=== PATIENT | male | born 1950 | race Caucasian/White ===

== ENCOUNTER 2024-01-07 14:39 | Outpatient (AMB) | payer MEDICARE, SELFPAY ==
--- NOTE | 2024-01-07 14:52 | MHC.PC.OV ---
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 Intake Note: establish care Allergies No Known Allergies Allergy (Verified 01/07/24 14:52) Tobacco use date assessed: 01/07/24 Fall risk assessment: 1 Fall in past year Last assessed Fall Risk: 01/07/24 Dental Screening Dental Screen Date: 01/07/24 Did you have a dental visit in the last 12 months?: Yes Did you have a dental problem in the last 6 months where you did not have access to dental care?: No Was dental information given to patient?: Patient has dentist 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 HLD, Prostate CA - Urology Dr Sloan, ED SurgHx: Prostatectomy about 9 yrs ago, B/L Knee replacements SocHx: Quit cigs 24 yrs ago, EtOH 2 dr a month. [facility] Surgical History (Updated 01/07/24 @ 15:24 by Arie Mensah) History of bilateral knee replacement Social History (Updated 01/07/24 @ 14:59 by Asmita Barreto [facility]) Housing: Apartment Patient Tobacco Use Status: Never used Tobacco e-Cigarette/Vaping Use: Never Used Second Hand Smoke Exposure: No Use of substances other than those prescribed or required for medical reasons: No service: Yes ([employer]) Current occupational status: retired Current occupational exposures/hazards: No Cognitive needs: No Hearing needs: Yes Vision needs: Yes Questionnaire PHQ-9 Over the last 2 weeks, how often have you been bothered by any of the following problems? 1. Little interest or pleasure in doing things: not at all 2. Feeling down, depressed, or hopeless: not at all 3. Trouble falling or staying asleep, or sleeping too much: not at all 4. Feeling tired or having little energy: not at all 5. Poor appetite or overeating: not at all 6. Feeling bad about yourself - or that you are a failure or have let yourself or your family down: not at all 7. Trouble concentrating on things, such as reading the newspaper or watching television: not at all 8. Moving or speaking so slowly that other people could have noticed. Or the opposite - being so fidgety or restless that you have been moving around a lot more than usual: not at all 9. Thoughts that you would be better off or of hurting yourself in some way: not at all Total score: 0 Depression Screening Interpretation: Negative Depression Screening Done: Yes 09152 - PHQ-9 Billing: Yes Source: Developed by Drs. Teodoro Howard, Obdulia Muniz, Navi Todd and colleagues, with an educational omi from [employer]. Thrive Questionnaire Date Thrive assessed: 01/07/24 I am a: Patient What is your living situation today?: I have a steady place to live Within the past 12 months, did the food you bought not last and you didn't have the money to get more?: Never true Within the past 12 months, did you worry whether your food would run out before you got money to buy more?: Never true Do you have trouble paying for medicines?: No Do you have trouble getting transportation to medical appointments?: No Do you have trouble paying your heating and electricity bill?: No Do you have trouble taking care of your child, family member or friend?: No Do you have trouble with day-to-day activities such as bathing, preparing meals, shopping, managing finances, etc.?: No Are you currently unemployed and looking for a job?: No Are you interested in more education?: No Please select the resources that you would like help with: None Currently or been in a relationship where the following occur: No concerns reported THRIVE Score: 0 AUDIT C Alcohol Use Questionnaire (AUDIT-C) 1. How often do you have a drink containing alcohol?: 2-4 times a month 2. How many drinks containing alcohol do you have on a typical day when you are drinking?: 1 or 2 3. How often do you have six or more drinks on one occasion?: Never Total Score: 2 Score Reviewed/Action Taken: No JUAN JOSE-7 AMB Questionnaire JUAN JOSE-7 Date JUAN JOSE - 7 assessed: 01/07/24 Feeling nervous, anxious, or on edge: 0 = Not at all Not being able to stop or control worryin = Not at all Worrying too much about different things: 0 = Not at all Trouble relaxin = Not at all Being so restless that it is hard to sit still: 0 = Not at all Becoming easily annoyed or irritable: 0 = Not at all Feeling afraid as if something awful might happen: 0 = Not at all Total JUAN JOSE-7 score (0-4 normal; 5-9 mild; 10-14 moderate; 15-21 severe): 0 Source: Developed by Drs. Teodoro Howard, Obdulia Muniz, Navi Todd and colleagues, with an educational omi from [employer]. JUAN JOSE-7 Assessment Billing JUAN JOSE-7 Assessment Tool: JUAN JOSE-7 Assessment 20857 Review of Systems Const Denies chills, Denies fatigue, Denies fever(s), Denies headache(s) and Denies weakness ENT Denies dizziness and Denies headache(s) Card Denies chest pain, Denies lightheadedness, Denies dyspnea and Denies other (Palpitations) Resp Denies cough, Denies dyspnea, Denies wheezing and Denies other ( shortness of breath) Musc Denies numbness and Denies tingling Neuro Denies dizziness, Denies headache(s), Denies numbness, Denies tingling, Denies paresthesias and Denies weakness Psych Denies anxiety and Denies depression Endo Denies fatigue Aller/Immun Denies wheezing Physical exam (Primary Care) Vital Signs: Last Vital Signs Temp 98.1 F 01/07/24 15:02 Pulse 61 01/07/24 15:02 Resp 16 01/07/24 15:02 BP 117/71 01/07/24 15:02 Pulse Ox 60 L 01/07/24 15:02 Oxygen Delivery Method Room Air 01/07/24 15:02 BMI result Body Mass Index 28.3 Tobacco/Smoking Status: Tobacco use Status Tobacco use date assessed 01/07/24 01/07/24 15:05 Patient Tobacco Use Status Never used Tobacco 01/07/24 15:05 e-Cigarette/Vaping Use Never Used 01/07/24 15:05 PHQ-9: PHQ-9 Score PHQ-9: Total score 0 01/07/24 15:28 Depression Screening Interpretation: Negative Thrive Assessment: Date of Thrive Assessment Date Thrive assessed 01/07/24 01/07/24 15:05 Currently or been in a relationship where the following occur: No concerns reported Const General: no acute distress and well developed Nutritional Appearance: well nourished Orientation/consciousness: patient oriented x3 HENMT Head: Yes normocephalic and Yes atraumatic Eyes General: appearance normal, both eyes and all related structures Pupils: Equal, round and reactive pupils present EOM: EOMs intact bilaterally Resp Effort & Inspection: normal respiratory effort Auscultation: clear to auscultation bilaterally Cardio Rate: regular rate Rhythm: regular rhythm Heart sounds: S1 normal heart sound present, S2 normal heart sound present, no gallops, no murmurs and no rubs Neuro General: patient oriented x3 and gait normal Cranial nerves: Yes Equal, round and reactive pupils present Psych Affect: normal affect Coding Level of Care Code New Pt Level 3 (90825) Diagnoses History of prostate cancer Z85.46 Coronary artery disease I25.10 Hypertension I10 Hyperlipidemia E78.5 Erectile dysfunction N52.9 Laboratory exam ordered as part of routine general medical examination Z00.00 Additional Codes JUAN JOSE-7 Assessment Billing - JUAN JOSE-7 Assessment Tool: JUAN JOSE-7 Assessment 67278 ([id number]) Assessment & Plan Assessment & Plan (1) History of prostate cancer: Code(s): Z85.46 - Personal history of malignant neoplasm of prostate Category: Medical Plan: S/p?prostatectomy?Followed?by urology (2) Coronary artery disease: Code(s): I25.10 - Atherosclerotic heart disease of [place] coronary artery without angina pectoris Category: Medical Plan: Followed?by?,?cardiology Stable Continue?aspirin,?metoprolol,?nitroglycerin?as?needed?and?rosuvastatin (3) Hypertension: Code(s): I10 - Essential (primary) hypertension Category: Medical Plan: Blood?pressure?is?controlled.??Goal?is?less?than?130/80 Continue?metoprolol (4) Hyperlipidemia: Code(s): E78.5 - Hyperlipidemia, unspecified Category: Medical Plan: Check?lipids Continue?rosuvastatin (5) Erectile dysfunction: Code(s): N52.9 - Male erectile dysfunction, unspecified Category: Medical Plan: Followed?by?urology Patient?uses?injectables?and?caused?an?injury?with?infection.??Currently?followed?by?urology?for?this?and?is?taking?doxycycline.??He?can?call?me?or?his?urologist?if?not?improving?or?worsens (6) Laboratory exam ordered as part of routine general medical examination: Code(s): Z00.00 - Encounter for general adult medical examination without abnormal findings Category: Medical Plan: Check?labs Orders: Orders Microalbumin, Random (w Creat) Today I10 - Essential (primary) hypertension Prostate Specific Antigen Scr Today Z12.5 - Encounter for screening for malignant neoplasm of prostate Comprehensive [place]. Panel Fast Today Z00.00 - Encounter for general adult medical examination without abnormal findings Complete Blood Count Auto Diff Today Z00.00 - Encounter for general adult medical examination without abnormal findings Lipid Panel Today Z00.00 - Encounter for general adult medical examination without abnormal findings TSH reflex Free T4 Today Z00.00 - Encounter for general adult medical examination without abnormal findings UA and rflx microscopic Today Z00.00 - Encounter for general adult medical examination without abnormal findings
[2024-01-07 15:02] VITALS: BP 117/71; PULSE 97; RESP 16; TEMP 36.7; O2SAT 60; BMI 28.3
== END 2024-01-07 15:38 | disposition home or self-care (01) ==
LOC: HO.HMCFM 14:39
PROVIDERS: PCP Family Medicine; Visit Provider Family Medicine
DX: Z85.46 Personal history of malignant neoplasm of prostate (principal); I25.10 Atherosclerotic heart disease of native coronary artery without angina pectoris; I10 Essential (primary) hypertension; E78.5 Hyperlipidemia, unspecified; N52.9 Male erectile dysfunction, unspecified; Z00.00 Encounter for general adult medical examination without abnormal findings

== ENCOUNTER → 2024-01-07 14:39 | Outpatient (BNVA) | payer MEDICARE, SELFPAY | PROVIDERS: PCP Internal Medicine; Visit Provider Family Medicine | DX: Z00.00 Encounter for general adult medical examination without abnormal findings (principal); N52.9 Male erectile dysfunction, unspecified; I25.10 Atherosclerotic heart disease of native coronary artery without angina pectoris; I10 Essential (primary) hypertension; E78.5 Hyperlipidemia, unspecified; Z85.46 Personal history of malignant neoplasm of prostate | CPT/HCPCS: 96127; 99202 ==

== ENCOUNTER 2024-01-08 10:44 | Outpatient (REF) | payer MEDICARE, SELFPAY ==
[2024-01-08 14:22] LABS: Appearance Urine Clear; Color Urine Yellow; Glucose Urine UA Negative (Negative); Leukocyte Esterase Urine Negative (Negative); Nitrite Urine Negative (Negative); Specific Gravity - Urine <= 1.005 (1.005-1.025); Urine Blood Negative (Negative); Urine Ketones Negative (Negative); Urine Protein Negative (Neg-Trace)
[2024-01-08 14:25] LABS: MANUAL DIFF FLAG NO
[2024-01-08 14:29] LABS: Basophils Absolute Auto 0.1 X10*3/uL (0.0-0.2); Basophils Percent Auto 0.9 % (0-2); Eosinophils Absolute Auto 0.6 X10*3/uL (0.0-0.4); Eosinophils Percent Auto 8.8 % (0-4); Imm Gran Abs Auto 0.01 X10*3/uL (0.00-0.03); Imm Gran Pct Auto 0.1 % (0.0-0.4); Lymphocytes Absolute Auto 1.9 X10*3/uL (1.2-4.9); Lymphocytes Percent Auto 27.5 % (20-40); Mean Corpuscular HGB Conc 33.3 g/dl (31.0-36.0); Mean Corpuscular Hemoglobin 31.6 pg (27.0-33.0); Mean Corpuscular Volume 94.7 fL (80.0-98.0); Mean Platelet Volume 11.7 fL (9.4-12.4); Monocytes Absolute Auto 0.9 X10*3/uL (0.1-1.2); Neutrophils Absolute Auto 3.5 x10*3/uL (2.0-8.3); Neutrophils Percent Auto 49.7 % (45-73); Platelet Count 232 X10*3/uL (160-400); Red Blood Count 4.75 X10*6/uL (4.60-5.80); Red Cell Distribution Width 13.8 % (11.0-16.0); White Blood Count 6.9 X10*3/uL (4.8-10.8)
[2024-01-08 15:10] LABS: Creatinine Urine 32.17 mg/dL; Microalbumin Urine < 5.0 mg/L
[2024-01-08 16:08] LABS: Alanine Aminotransferase 43 U/L (0-40); Albumin Level 4.4 g/dL (3.5-5.0); Alkaline Phosphatase 54 U/L (39-117); Anion Gap 15 (12-20); Aspartate Amino Transferase 46 U/L (5-37); Bilirubin Total 0.7 mg/dL (0.0-1.0); Blood Urea Nitrogen 19 mg/dL (9-16); Calcium 9.5 mg/dL (8.4-10.2); Carbon Dioxide 26 mmol/L (22-29); Chloride 104 mmol/L (96-108); Cholesterol 166 mg/dL (<200); Estimated Glomerular Filt Rate > 60; Glucose Fasting 95 mg/dL (60-99); HDL Cholesterol 68 mg/dL (>40); LDL Cholesterol Calculated 86 mg/dL (<100); Potassium 4.5 mmol/L (3.3-5.1); Sodium 140 mmol/L (135-145); Total Protein 7.2 g/dL (6.5-8.0); Triglycerides 64 mg/dL (<150)
[2024-01-08 16:20] LABS: Prostate Specific Antigen Scr < 0.10 ng/mL (<0.05-4.0)
== END 2024-01-08 10:45 | disposition home or self-care (01) ==
LOC: HO.WFDLDS 10:44
PROVIDERS: Visit Provider Family Medicine
DX: Z00.00 Encounter for general adult medical examination without abnormal findings (principal); I10 Essential (primary) hypertension; Z12.5 Encounter for screening for malignant neoplasm of prostate
CPT/HCPCS: 36415; 80053; 80061; 81003; 82043; 82570; 84153; 84443; 85025

== ENCOUNTER → 2024-01-26 07:49 | Outpatient (BNVA) | payer MEDICARE, SELFPAY | PROVIDERS: PCP Family Medicine; Visit Provider Physician Assistant Medical | DX: Z00.00 Encounter for general adult medical examination without abnormal findings (principal); R74.8 Abnormal levels of other serum enzymes; I10 Essential (primary) hypertension; I25.10 Atherosclerotic heart disease of native coronary artery without angina pectoris; E78.5 Hyperlipidemia, unspecified; Z85.46 Personal history of malignant neoplasm of prostate; Z79.82 Long term (current) use of aspirin; Z79.899 Other long term (current) drug therapy | CPT/HCPCS: 99397 ==

== ENCOUNTER 2024-01-26 08:14 | Outpatient (AMB) | payer MEDICARE, SELFPAY ==
--- NOTE | 2024-01-26 08:36 | A.OFFPC_ITS ---
Intake Visit Reasons: Extended Exam Intake Note: Annual exam Allergies adhesive tape Allergy (Intermediate, Verified 01/26/24 08:18) Rash Medication List - Last Reconciled 01/26/24 by Tho Cha MD amoxicillin 1,000 mg PO BID aspirin (Adult Low Dose Aspirin) 81 mg PO DAILY clobetasol 0.05% topical metoprolol succinate ER 25 mg PO DAILY nitroglycerin 0.4 mg sublingual Q5M PRN rosuvastatin 40 mg PO DAILY Tobacco use date assessed: 01/07/24 Fall risk assessment: No Falls in past year Last assessed Fall Risk: 01/26/24 Dental Screening Dental Screen Date: 01/07/24 HPI Extended Exam HPI Details Patient?presents?for CPE?with?follow-up?labs?and?health?maintenance Reviewed?labs?with?patient: Elevated?LDL?cholesterol?above?goal?of?less?than?70?for?patient?with?coronary?ar ciaran?disease.??He?is?on?rosuvastatin?40?mg?daily Mildly?elevated?AST?and?ALT?liver?enzymes.??Patient?notes?that?he?has?had?some?w eight?gain?lately PSA?less?than?0.10?as?he?has?had?a?prostatectomy?and?is?followed?by?Urology. Patient?notes?some?coughing?after?eating?and?gets?some?heartburn?as?well. No?chest?pain?with?this.??Not?associated?with?exertion [facility] Surgical History (Updated 01/07/24 @ 15:24 by Arie Mensah) History of bilateral knee replacement Social History (Updated 01/26/24 @ 08:21 by Lety Payne CMA) Housing: Apartment Alcohol intake: current Patient Tobacco Use Status: Never used Tobacco e-Cigarette/Vaping Use: Never Used Second Hand Smoke Exposure: No service: Yes ([employer]) Current occupational status: retired Current occupational exposures/hazards: No Cognitive needs: No Hearing needs: Yes Vision needs: Yes Questionnaire Thrive Questionnaire Date Thrive assessed: 01/07/24 JUAN JOSE-7 AMB Questionnaire JUAN JOSE-7 Date JUAN JOSE - 7 assessed: 01/07/24 Source: Developed by Drs. Teodoro Howard, Obdulia Muniz, Navi Todd and colleagues, with an educational omi from [employer]. Review of Systems Const Denies chills, Denies fatigue, Denies fever(s), Denies headache(s) and Denies weakness Eyes Denies change in vision ENT Denies dizziness, Denies headache(s), Denies hearing loss, Denies nasal congestion, Denies sinus pain, Denies sinus pressure and Denies sore throat Card Denies chest pain, Denies lightheadedness, Denies dyspnea and Denies other (palpitations) Resp Denies cough, Denies dyspnea and Denies wheezing GI Denies abdominal pain, Denies melena, Denies hematochezia, Denies change in bowel habits, Denies dyspepsia and Denies nausea Denies hematuria and Denies dysuria Musc Denies abnormal gait, Denies myalgias, Denies arthralgias, Denies numbness and Denies tingling Skin/Breast Denies rash, Denies unusual bruising and Denies wounds Neuro Denies abnormal gait, Denies dizziness, Denies headache(s), Denies memory loss, Denies numbness, Denies Sensory deficit (Neuro), Denies tingling and Denies weakness Psych Denies anxiety, Denies depression and Denies memory loss Endo Denies cold intolerance, Denies fatigue, Denies heat intolerance, Denies polydipsia and Denies polyuria Jose/Lymph Denies easy bleeding and Denies easy bruising Aller/Immun Denies wheezing Physical exam (Primary Care) Tobacco/Smoking Status: Tobacco use Status Tobacco use date assessed 01/07/24 01/26/24 08:37 Patient Tobacco Use Status Never used Tobacco 01/26/24 08:37 e-Cigarette/Vaping Use Never Used 01/26/24 08:37 Thrive Assessment: Date of Thrive Assessment Date Thrive assessed 01/07/24 01/26/24 08:37 Const General: no acute distress, well developed, alert and awake Nutritional Appearance: well nourished Orientation/consciousness: patient oriented x3 HENMT Head: Yes normocephalic and Yes atraumatic Ears: hearing grossly normal bilaterally and TM's normal bilaterally General nose exam: Normal external nose present and Normal nares present Mouth: Normal oral and palatal mucosa present and moist mucous membranes Teeth and gingiva: dentition normal Throat: Yes posterior oropharynx normal Eyes Pupils: Equal, round and reactive pupils present and Pupil accommodation reflex normal EOM: EOMs intact bilaterally Neck Neck: Yes normal visual inspection, Yes no lymphadenopathy and Yes trachea midline Thyroid: Thyroid normal Carotids: no bruits Lymphatic: no lymphadenopathy noted Chest Chest palpation & inspection: normal inspection of the chest Resp Effort & Inspection: normal respiratory effort Auscultation: clear to auscultation bilaterally Cardio Rate: regular rate Rhythm: regular rhythm Heart sounds: S1 normal heart sound present, S2 normal heart sound present, no gallops, no murmurs and no rubs Bruits: no abdominal aortic bruits and no carotid bruits GI Palpation (GI): No Abdominal aortic bruit present, Soft to palpation, nontender, No hepatosplenomegaly present and No Rebound tenderness present Auscultation: normal bowel sounds General: Yes no CVA tenderness Back/Spine/Pelvis Back: no CVA tenderness Cervical Spine: cervical ROM normal and No Cervical spine tenderness Thoracic/Lumbar Spine: thoraco-lumbar ROM normal, No pain with thoraco-lumbar ROM, No thoracic spinal tenderness and No lumbar spinal tenderness Skin Lesions: no lesions Rashes: no rashes Trauma: no lacerations or abrasions Wounds: no wounds Nails: normal Neuro General: patient oriented x3, gait normal and CN's II-XI intact bilaterally Cranial nerves: Yes Equal, round and reactive pupils present Cognition (Neuro): normal cognition Gait exam (Neuro): Normal gait present Motor exam (neuro): 5/5 motor strength present throughout Sensory Exam: No Sensory deficit (Neuro) Deep tendon reflexes (DTR's): Right patellar reflex intensity grade: 2+ and Left patellar reflex intensity grade: 2+ Extrem General: Yes normal to inspection and No edema Psych Appearance: grossly normal Affect: normal affect Attitude: cooperative Thought process: Normal thought process present Coding Level of Care Code Est Pt Prev Care >65y(16947) Diagnoses Adult general medical exam Z00.00 Elevated liver enzymes R74.8 Hypertension I10 Coronary artery disease I25.10 Hyperlipidemia E78.5 History of prostate cancer Z85.46 Screening for colon cancer Z12.11 Assessment & Plan Assessment & Plan (1) Adult general medical exam: Code(s): Z00.00 - Encounter for general adult medical examination without abnormal findings Category: Medical Plan: 73-year-old?male?presents?for?complete?physical?exam Encouraged?healthy?diet?with?active?lifestyle?and?plenty?of?exercise (2) Elevated liver enzymes: Code(s): R74.8 - Abnormal levels of other serum enzymes Category: Medical Plan: Mildly?elevated?liver?enzymes. He?notes?that?he?has?gained?weight?lately.??Encouraged?weight?loss?and?good?hydr ation. Will?recheck?in?a?few?months (3) Hypertension: Code(s): I10 - Essential (primary) hypertension Category: Medical Plan: Blood?pressure?is?controlled?and?at?goal?of?less?than?130/80?for?patient?with?co ronary?artery?disease Continue?current?medication (4) Coronary artery disease: Code(s): I25.10 - Atherosclerotic heart disease of [place] coronary artery without angina pectoris Category: Medical Plan: Stable.??He?is?on?aspirin,?rosuvastatin?and?metoprolol.??He?has?nitroglycerin?av ailable?as?well. Followed?by??[facility]?annually. Stable.??Follow-up?with?Cardiology?as?recommended (5) Hyperlipidemia: Code(s): E78.5 - Hyperlipidemia, unspecified Category: Medical Plan: LDL?cholesterol?is?above?goal?of?less?than?70 Encouraged?a?diet?lower?in?saturated?fats?and?cholesterol.??Encouraged?we ight?loss?and?exercise He?continues?rosuvastatin.??I?discussed?with?him?that?we?could?also?try?some?Zet ia?at?next?visit?if?his?lipids?are?still?too?high. (6) History of prostate cancer: Code(s): Z85.46 - Personal history of malignant neoplasm of prostate Category: Medical Plan: S/p?prostatectomy. PSA?is?less?than?0.10 Follow-up?with?urology?as?recommended (7) Screening for colon cancer: Code(s): Z12.11 - Encounter for screening for malignant neoplasm of colon Category: Medical Plan: Patient?says?he?had?a?colonoscopy?last?year?at?[facility]. He?notes?that?he?had?1?polyp?which?was?removed He?is?uncertain?about?any?follow-up Will?request?report Orders: Orders Comprehensive [place]. Panel Fast Today R74.8 - Abnormal levels of other serum enzymes, Z00.00 - Encounter for general adult medical examination without abnormal findings Lipid Panel Today E78.5 - Hyperlipidemia, unspecified, Z00.00 - Encounter for general adult medical examination without abnormal findings Medications: New famotidine 20 mg PO DAILY 30 days 30 tabs 0RF Changed From amoxicillin 1,000 mg PO BID To amoxicillin 1,000 mg (2 x 500 mg) PO ONCE 1 day 2 caps 1RF
== END 2024-01-26 09:04 | disposition home or self-care (01) ==
LOC: HO.HMCFM 08:14
PROVIDERS: PCP Family Medicine; Visit Provider Family Medicine
DX: Z00.00 Encounter for general adult medical examination without abnormal findings (principal); R74.8 Abnormal levels of other serum enzymes; I10 Essential (primary) hypertension; I25.10 Atherosclerotic heart disease of native coronary artery without angina pectoris; E78.5 Hyperlipidemia, unspecified; Z85.46 Personal history of malignant neoplasm of prostate; Z12.11 Encounter for screening for malignant neoplasm of colon

== ENCOUNTER 2024-04-06 06:45 | Outpatient (REF) | payer MEDICARE, SELFPAY ==
[2024-04-06 08:20] LABS: Cholesterol 166 mg/dL (<200); HDL Cholesterol 59 mg/dL (>40); LDL Cholesterol Calculated 91 mg/dL (<100); Triglycerides 83 mg/dL (<150)
== END 2024-04-06 06:46 | disposition home or self-care (01) ==
LOC: HO.LAB 06:45
PROVIDERS: Internal Medicine Cardiovascular Disease; PCP Family Medicine; Visit Provider Family Medicine
DX: E78.00 Pure hypercholesterolemia, unspecified (principal)
CPT/HCPCS: 36415; 80061

== ENCOUNTER 2024-07-08 13:19 | Outpatient (AMB) | payer MEDICARE, SELFPAY ==
--- NOTE | 2024-07-08 13:44 | MHC.PC.OV ---
Vital Signs 07/08/24 13:49 Height 5 ft 6 in Weight 172 lb 2 oz BMI 27.8 BP 114/62 Blood Pressure Location Lt brachial Position Sitting Respiration 16 Pulse 67 Pulse Source Pulse Oximeter Temp 97.3 F Temp Source Oral Pulse Oximetry (%) 98 Oxygen Delivery Method Room Air Intake Visit Reasons: hyperlipidemia and elevated liver enzymes Allergies adhesive tape Allergy (Intermediate, Verified 07/08/24 13:44) Rash Tobacco use date assessed: 01/07/24 Dental Screening Dental Screen Date: 01/07/24 HPI hyperlipidemia and elevated liver enzymes HPI Details 74 y/o male presents to f/u HLD, liver enzymes. Labs drawn 04/06/24. Reviewed labs with pt. Triglyceride 83. TC 166. LDL 91. HDL 59. He is on rosuvastatin 40mg. He notes he had just recently started ezetimibe. No recent liver enzymes to review. BP today 114/62, 67p. He is on metoprolol. [facility] Surgical History (Updated 01/07/24 @ 15:24 by Arie Mensah) History of bilateral knee replacement Social History (Updated 01/26/24 @ 08:21 by Lety Payne [facility]) Housing: Apartment Alcohol intake: current Patient Tobacco Use Status: Never used Tobacco e-Cigarette/Vaping Use: Never Used Second Hand Smoke Exposure: No service: Yes ([employer]) Current occupational status: retired Current occupational exposures/hazards: No Cognitive needs: No Hearing needs: Yes Vision needs: Yes Questionnaire PHQ-9 Over the last 2 weeks, how often have you been bothered by any of the following problems? 1. Little interest or pleasure in doing things: not at all 2. Feeling down, depressed, or hopeless: not at all 3. Trouble falling or staying asleep, or sleeping too much: not at all 4. Feeling tired or having little energy: several days 5. Poor appetite or overeating: not at all 6. Feeling bad about yourself - or that you are a failure or have let yourself or your family down: not at all 7. Trouble concentrating on things, such as reading the newspaper or watching television: not at all 8. Moving or speaking so slowly that other people could have noticed. Or the opposite - being so fidgety or restless that you have been moving around a lot more than usual: not at all 9. Thoughts that you would be better off or of hurting yourself in some way: not at all Total score: 1 Depression Screening Interpretation: Negative Depression Screening Done: Yes 67084 - PHQ-9 Billing: Yes Source: Developed by Drs. Teodoro Howard, Obdulia Muniz, Navi Todd and colleagues, with an educational omi from [employer]. Thrive Questionnaire Date Thrive assessed: 07/08/24 I am a: Patient What is your living situation today?: I have a steady place to live Within the past 12 months, did the food you bought not last and you didn't have the money to get more?: Never true Within the past 12 months, did you worry whether your food would run out before you got money to buy more?: Never true Do you have trouble paying for medicines?: No Do you have trouble getting transportation to medical appointments?: No Do you have trouble paying your heating and electricity bill?: No Do you have trouble taking care of your child, family member or friend?: I choose not to answer this question Do you have trouble with day-to-day activities such as bathing, preparing meals, shopping, managing finances, etc.?: No Are you currently unemployed and looking for a job?: No Are you interested in more education?: Yes Please select the resources that you would like help with: None Currently or been in a relationship where the following occur: I choose not to answer THRIVE Score: 0 AUDIT C Alcohol Use Questionnaire (AUDIT-C) 1. How often do you have a drink containing alcohol?: 2-4 times a month 2. How many drinks containing alcohol do you have on a typical day when you are drinking?: 1 or 2 3. How often do you have six or more drinks on one occasion?: Never Total Score: 2 JUAN JOSE-7 AMB Questionnaire JUAN JOSE-7 Date JUAN JOSE - 7 assessed: 07/08/24 Feeling nervous, anxious, or on edge: 0 = Not at all Not being able to stop or control worryin = Not at all Worrying too much about different things: 0 = Not at all Trouble relaxin = Not at all Being so restless that it is hard to sit still: 0 = Not at all Becoming easily annoyed or irritable: 0 = Not at all Feeling afraid as if something awful might happen: 0 = Not at all Total JUAN JOSE-7 score (0-4 normal; 5-9 mild; 10-14 moderate; 15-21 severe): 0 Source: Developed by Drs. Teodoro Howard, Obdulia Muniz, Navi Todd and colleagues, with an educational omi from [employer]. Review of Systems Const Denies chills, Denies fatigue, Denies fever(s), Denies headache(s) and Denies weakness ENT Denies dizziness and Denies headache(s) Card Denies dyspnea Resp Denies cough, Denies dyspnea, Denies wheezing and Denies other (shortness of breath) Musc Denies numbness and Denies tingling Neuro Denies dizziness, Denies headache(s), Denies numbness, Denies tingling and Denies weakness Psych Denies anxiety and Denies depression Endo Denies fatigue Aller/Immun Denies wheezing Physical exam (Primary Care) Vital Signs: Last Vital Signs Temp 97.3 F 07/08/24 13:49 Pulse 67 07/08/24 13:49 Resp 16 07/08/24 13:49 BP 114/62 07/08/24 13:49 Pulse Ox 98 07/08/24 13:49 Oxygen Delivery Method Room Air 07/08/24 13:49 BMI result Body Mass Index 27.8 Tobacco/Smoking Status: Tobacco use Status Tobacco use date assessed 01/07/24 07/08/24 13:44 Patient Tobacco Use Status Never used Tobacco 07/08/24 13:44 e-Cigarette/Vaping Use Never Used 07/08/24 13:44 PHQ-9: PHQ-9 Score PHQ-9: Total score 1 07/08/24 14:18 Depression Screening Interpretation: Negative Thrive Assessment: Date of Thrive Assessment Date Thrive assessed 07/08/24 07/08/24 13:48 Currently or been in a relationship where the following occur: I choose not to answer Const General: well developed; No acute distress Nutritional Appearance: well nourished Orientation/consciousness: patient oriented x3 HENMT Head: Yes normocephalic and Yes atraumatic Eyes General: appearance normal, both eyes and all related structures Pupils: Equal, round and reactive pupils present EOM: EOMs intact bilaterally Resp Effort & Inspection: normal respiratory effort Auscultation: clear to auscultation bilaterally Cardio Rate: regular rate Rhythm: regular rhythm Heart sounds: S1 normal heart sound present, S2 normal heart sound present, no gallops, no murmurs and no rubs Neuro General: patient oriented x3 and gait normal Cranial nerves: Yes Equal, round and reactive pupils present Psych Affect: normal affect Coding Level of Care Code Est Pt Level 4 (53926) Diagnoses Hypertension I10 Hyperlipidemia E78.5 Coronary artery disease I25.10 Elevated liver enzymes R74.8 Cough R05.9 Additional Codes PHQ-9 - 94353 - PHQ-9 Billing: Yes ([id number]) Assessment & Plan Assessment & Plan (1) Hypertension: Code(s): I10 - Essential (primary) hypertension Category: Medical Plan: Blood?pressure?is?well?controlled.??Goal?is?less?than?130/80 Continue?current?medication (2) Hyperlipidemia: Code(s): E78.5 - Hyperlipidemia, unspecified Category: Medical Plan: LDL?cholesterol?is?above?goal?of?less?than?70?at?last?check We?had?discussed?adding?Zetia?to?rosuvastatin.??However?his?diabetes specialist?has?just?recently?started?Zetia?for?him. Continue?rosuvastatin?and?Zetia.??Will?recheck?lipids?with?next?blood draw (3) Coronary artery disease: Code(s): I25.10 - Atherosclerotic heart disease of inaja coronary artery without angina pectoris Category: Medical Plan: Stable Follow-up?with?Cardiology?as?recommended (4) Elevated liver enzymes: Code(s): R74.8 - Abnormal levels of other serum enzymes Category: Medical Plan: Mildly?elevated?liver?enzymes Will?recheck?with?next?blood?draw (5) Cough: Code(s): R05.9 - Cough, unspecified Category: Medical Plan: And?given?patient?a?trial?of?famotidine.??Patient?took?this?and?says?his?cough?went?away He?discontinued famotidine?and?cough?has?not?returned He?still?has?some?famotidine?let.??If?cough?returns?he?can?start?this?and?let?me?know.??Would?refer?him?to?GI
[2024-07-08 13:49] VITALS: BP 114/62; PULSE 67; RESP 16; TEMP 36.3; O2SAT 98; BMI 27.8
--- OUTSIDE RECORDS SUMMARY | 2024-07-08 15:45 | XMS_ITS | Encounter Summary ---
Author Organization [employer] Address [address] [place] [address] Care Team Providers Care Disease Case Manager Rn Name Role Phone Tho Cha MD Primary Care Provider [phone] Encounter Details Date Type Department Care Team (Late st Contact Info) Description 06/09/2024 Lab Requisition [facility] - Main Lab [address] [facility] [place] [phone] Aleida Maher, PA [address] [facility] [address] [place] [address] Malignant neoplasm of prostate (CMS/HCC V24, CMS/HCC V28) Social History Tobacco Use Types Packs/Day Years Used Date Smoking Tobacco: Former Cigarettes 2 34 0 03/10/1961 - 03/10/1995 Smokeless Tobacco: Never Alcohol Use Standard Drinks/Week Comments Yes 0 (1 standard drink = 0.6 oz pur e alcohol) Sex and Gender Information Value Date Recorded Sex Assigned at Not on file Legal Sex Male 11:49 PM EST Gender Identity Not on file Sexual Orientation Not on file documented as of this encounter Plan of Treatment Not on file documented as of this encounter Procedures Procedure Name Priority Date/Time Associated Diagnosis Comments PROSTATE SPECIFIC ANTIGEN DIAGNOSTIC Routine 06/09/2024 9:40 AM EDT Malignant neoplasm of prostate (CMS/HCC) documented in this encounter Results * Prostate specific antigen diagnostic (06/09/2024 9:40 AM EDT) PSA <0.06 0.00 - 4.00 ng/mL LAB CHEMISTRY METHOD 06/09/2024 4:[address] [facility] Blood Venous blood specimen / Unknown 06/09/2024 9:40 AM EDT 06/09/2024 3:[address] [facility] - 06/09/2024 4:53 PM EDT The Siemens Advia Centaur Chemiluminescent Immunoassay is used. Results obtained with different assay methods or kits cannot be used interchangeably. Results cannot be interpreted as absolute evidence of the presence or absence of malignant disease. us Aleida ONEIL LAB BLOOD ORDERABLES Final Resul t [facility] [address] [place] [address], documented in this encounter Visit Diagnoses Diagnosis Malignant neoplasm of prostate (CMS/HCC V24, CMS/HCC V28) Malignant neoplasm of prostate documented in this encounter Care Teams Disease Case Manager Rn Relationship Specialty Start Date End Date Tho Cha MD [address] [place] [address] PCP - General Family Medicine 06/02/24 documented as of this encounter
--- OUTSIDE RECORDS SUMMARY | 2024-07-08 15:45 | XMS_ITS | Clinical Summary ---
Author Organization [address] [facility] Address [address] [place] [address] Phone Care Team Providers Care Groundman Name Role Phone Tho Cha MD Primary Care Provider Medications metoprolol succinate (TOPROL-XL) 25 mg 24 hr tablet TAKE 1 TABLET BY MOUTH EVERY DAY 90 tablet 2 01/26/20 24 Active bisacodyL (DULCOLAX) 5 mg EC tablet Take 2 tabs at 6pm as directed. 04/29/19 24 Active POOVSQC-[id number] ORAL Take by mouth. Active ascorbic acid-vitamin E-biotin (Hair, Skin, Nails with Biotin) 7.5-7.5-1,250 mg-unit-mcg tablet,chewable Take by mouth. Active nitroglycerin (NITROSTAT) 0.[address] 1 tablet (0.4 mg total) under the tongue every 5 (five) minutes if needed for chest pain. 06/04/19 19 Active GLUCOSAMINE HCL ORAL Take by mouth. Active psyllium husk (METAMUCIL ORAL) Take by mouth. Active ascorbic acid (VITAMIN C) 500 mg chewable tablet Take 500 mg by mouth. Active multivit-min/folic acid/vit K1 (MULTI FOR HIM, NO IRON, ORAL) Take 1 tablet by mouth 1 (one) time each day. Active ubidecarenone (COENZYME Q10 ORAL) Take 1 tablet by mouth 1 (one) time each day. Active aspirin 81 mg EC tablet Take 1 tablet (81 mg total) by mouth 1 (one) time each day. Active amoxicillin (AMOXIL) 500 mg capsule 1 capsule (500 mg total). 03/11/19 25 Active ezetimibe (ZETIA) 10 mg tabletIndications:Freque nt PVCs,Pure hypercholesterolemia Take 1 tablet (10 mg total) by mouth 1 (one) time each day. 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 He is feeling great. Tolerating BB. Hyperlipidemia 06/11/2007 Overview (02/17/2024): Last Assessment & Plan: Last lipid panel 04/30 total cholesterol 154, HDL 66, LDL 76. Continue statin. Psoriasis 12/06/2005 Overview (02/17/2024): [facility] Encounters Date Type Department Care Team Description 06/09/2024 Lab Requisition [facility] - Main Lab [address] [facility] [place] [address] Aleida Maher PA Malignant neoplasm of prostate ([facility]/HCC V24, [facility]/HCC V28) 06/02/2024 2:00 PM EDT Office Visit [facility] [address] [facility] [address] [place] [address] Matthew Schuster MD Frequent PVCs (Primary Dx); Pure hypercholesterolemia from Last 3 Months Immunizations Name Administration Dates Next Due Influenza Quadravalent, MDCK , 0.5ml, preservative free (Flucelvax) 6mo and older 04/02/2018 Influenza Quadravalent, MDCK , 0.5ml, with preservative (Flucelvax) 6mo and older 10/31/2017 Influenza trivalent, 0.5mL ( Fluad) 65yo and older 12/08/2019,11/10/2018,11/17/2015 Influenza trivalent, 0.5mL, preservative free (Fluarix; FluLaval; Fluzone) ages 6mo and older (Afluria) 3 years and older 11/13/2013,01/08/2012,03/01/2011,01/16 Pfizer SARS-CoV-2 COVID-19, mRNA, LNP-S, preservative free 06/22/2020,05/31/2020 Pneumococcal conjugate 13 va lent (Prevnar 13, PCV13) 2mo and older 11/17/2015 Pneumococcal polysaccharide 23 valent (Pneumovax 23) 2yo and older 04/02/2018 Td Tetanus diptheria (Tdvax) 7yo and older 02/11/2019,08/08/2000 Tdap Tetanus diptheria acell ular pertussis (Boostrix; Adacel) 7yo and older 06/11/2007 Zoster Live 11/13/2013 Surgical History Surgery Date Site/Laterality Comments OTHER SURGICAL HISTORY 06/15 PROCEDURE: CHG ASSAY OF PROSTATE SPECIFIC ANTIGEN FREE; COMMENT: 2.1 COLONOSCOPY 04/15 PROCEDURE: UT COLONOSCOPY STOMA DX INCLUDING COLLJ SPEC SPX; COMMENT: Trinidad chang; rpt 10 y COLONOSCOPY 04/07/12 PROCEDURE: UT COLONOSCOPY STOMA DX INCLUDING COLLJ SPEC SPX; COMMENT: charlene; repeat in ten yrs KNEE ARTHROSCOPY 11/19 Left PROCEDURE: UT ARTHROSCOPY KNEE DIAGNOSTIC W/WO SYNOVIAL BX SPX; COMMENT: Luber PROSTATECTOMY 06/03/2014 N/A PROCEDURE: PROSTATECTOMY; COMMENT: Luther; robot assist Medical History Medical History Date Comments Other psoriasis and similar disorders 12/06/2005 DX:Other psoriasis and similar disorders Other and unspecified hyperlipidemia 06/11/2007 DX:Other and unspecified hyperlipidemia History of prostate cancer 05/23/2014 DX:Hi story of prostate cancer; COMMENT: Urology (04/11/17): Has had robotic prostatectomy for prostate cancer in the past which has been treated. Has not undergone radiation, hormonal therapy and cehmotherapy for this. PSA is undetectable, no micro heme on UA today, f/u in 1year. 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 DX:Frequent PVCs ; COMMENT: Will need routine ECHO Family History Medical History Relation Name Comments Hypertension Brother Prostate cancer Father Hypertension Mother Relation Name Status Comments Brother Father Mother Social History Tobacco Use Types Packs/Day Years [...] on file Sexual Orientation Not on file Obstetrics History Last Filed Vital Signs Vital Sign Reading Time Taken Comments Blood Pressure 118/70 06/02/2024 2:23 PM EDT Pulse 56 06/02/2024 2:23 PM EDT Temperature - - Respiratory Rate - - Oxygen Saturation 99% 06/02/2024 2:23 PM EDT Inhaled Oxygen Concentration - - Weight 78.5 kg (173 lb) 06/02/2024 2:23 PM EDT Height 168.9 cm (5' 6.5 ) 06/02/2024 2:23 PM EDT Body Mass Index 27.5 06/02/2024 2:23 PM EDT Plan of Treatment Health Maintenance Due Date Last Done Comments Zoster Vaccines (1 of 2) 01/08/2014 11/13/2013 COVID-19 Vaccine (3 - Pfizer risk series) 07/20/2020 06/22/2020, 05/31/2020 Colorectal Cancer Screening: Colonoscopy 02/16/2022 Depression Screening 02/16/2022 Falls Risk Assessment 02/16/2022 Medicare Annual Wellness Visit 02/16/2022 Social Influencers of Health Screening 02/16/2022 Influenza Vaccine (Season Ended) 2024 12/08/2019, 11/10/2018, 04/02/2018, Additional history exists RSV Immunization Adult Patients (1 - 1-dose 75+ series) 2025 Cholesterol Screening (Lipid Panel) 03/28/2027 03/28/2022 DTaP,Tdap,and Td Vaccines (4 - Td or Tdap) 02/11/2029 02/11/2019, 06/11/2007, 08/08/2000 Hepatitis C Screening Completed 11/04/2012 Pneumococcal Vaccine: 50+ Years Completed 04/02/2018, 11/17/2015 Abdominal Aortic Aneurysm (AAA) Screen Completed 04/23/2018 HIB Vaccines Aged Out No longer eligi ble based on patient's age to complete this topic HPV Vaccines Aged Out No longer eligi ble based on patient's age to complete this topic Hepatitis A Vaccines Aged Out No long er eligible based on patient's age to complete this topic Hepatitis B Vaccines Aged Out No long er eligible based on patient's age to complete this topic IPV Vaccines Aged Out No longer eligi ble based on patient's age to complete this topic MMR Vaccines Aged Out No longer eligi ble based on patient's age to complete this topic Meningococcal ACWY Vaccine Aged Out N o longer eligible based on patient's age to complete this topic Meningococcal B Vaccine Aged Out No l onger eligible based on patient's age to complete this topic RSV Immunization Patients Under 20 months Aged Out No longer eligible based on patient's age to complete this topic Varicella Vaccines Aged Out No longer eligible based on patient's age to complete this topic Procedures Procedure Name Priority Date/Time Associated Diagnosis Comments PROSTATE SPECIFIC ANTIGEN DIAGNOSTIC Routine 06/09/2024 9:40 AM EDT Malignant neoplasm of prostate (CMS/HCC) ECG 12-LEAD Routine 06/02/2024 2:29 PM EDT Frequent PVCs LIPID PANEL Routine 03/28/2022 US ABDOMINAL AORTA REAL TIME SCREEN STUDY AAA Routine 04/23/2018 9:05 AM EST Encounter for screening for cardiovascular disorders HEPATITIS C SCREENING Routine 11/04/2012 from Last 3 Months or Most Recently Relevant to Health Maintenance Results * Prostate specific antigen diagnostic (06/09/2024 9:40 AM EDT) PSA <0.06 0.00 - 4.00 ng/mL LAB CHEMISTRY METHOD 06/09/2024 4:53 PM EDT [facility] Blood Venous blood specimen / Unknown 06/09/2024 9:40 AM EDT 06/09/2024 3:26 PM EDT Narrative [facility] - 06/09/2024 4:53 PM EDT The Siemens Advia Centaur Chemiluminescent Immunoassay is used. Results obtained with different assay methods or kits cannot be used interchangeably. Results cannot be interpreted as absolute evidence of the presence or absence of malignant disease. Aleida ONEIL LAB BLOOD ORDERABLES Final Resul t [facility] [address] [place] [address], * ECG 12 lead (06/02/2024 2:29 PM EDT) Ventricular Rate ECG 56 BPM GEMUSE Atrial Rate 56 BPM GEMUSE P-R Interval 164 ms GEMUSE QRS Duration 92 ms GEMUSE Q-T Interval 404 ms GEMUSE QTc 389 ms GEMUSE P Wave [place] 31 degrees GEMUSE R [place] 11 degrees GEMUSE T [place] 45 degrees GEMUSE ECG Interpretation Sinus bradycardia Otherwise normal ECG No previous ECGs available Confirmed by Maury SCHUSTER JAY ([id number]) on 06/02/2024 2:55:27 PM GEMUSE 06/02/2024 2:29 PM EDT 06/02/2024 2:55 PM EDT Matthew Schuster MD ECG ORDERABLES Final Result GEMUSE * Lipid panel (03/28/2022) LDL/HDL Ratio 2 0 - 4 Triglycerides 50 0 - 150 mg/dL Cholesterol 163 0 - 200 mg/dL HDL 79 >=40 mg/dL LDL Cholesterol 74 0 - 100 mg/dL Blood Venous blood specimen / Unknown us Historical Provider LAB BLOOD ORDERABLES Manju farmer Result * US ABDOMINAL AORTA REAL TIME SCREEN STUDY AAA (04/23/2018 9:05 AM EST) Anatomical Region Laterality Modality Ultrasound 04/02/2018 11:3 3 AM EST Narrative 04/23/2018 11:38 AM EST US ABDOMINAL AORTA REAL TIME SCREEN STUDY AAA ABDOMINAL AORTA SCREENING ULTRASOUND History: ??Screening for abdominal aortic aneurysm. Comparison: None. FINDINGS: ??The proximal aorta measures 2.1 cm in diameter. The mid aorta measures 2.0 cm in diameter. The distal aorta measures 2.2 cm in diameter. No periaortic fluid collection is seen. The aortic bifurcation is normal in appearance. The proximal bilateral common iliac arteries are normal in caliber. IMPRESSION: IMPRESSION: No visualized abdominal aortic aneurysm. Procedure Note Shannan Simeon MD - 02/26/2022 US ABDOMINAL AORTA REAL TIME SCREEN STUDY AAA ABDOMINAL AORTA SCREENING ULTRASOUND History: Screening for abdominal aortic aneurysm. Comparison: None. FINDINGS: The proximal aorta measures 2.1 cm in diameter. The mid aortameasures 2.0 cm in diameter. The distal aorta measures 2.2 cm in diameter. No periaorticfluid collection is seen. The aortic bifurcation is normal in appearance. The proximal bilateralcommon iliac arteries are normal in caliber. IMPRESSION: IMPRESSION: No visualized abdominal aortic aneurysm. Damon Ruiz MD IMG US PROCEDURES Final R esult * Hepatitis C Screening (11/04/2012) Hepatitis C Screening abstracted Historical Provider HEALTH MAINTENANCE Final Result from Last 3 Months or Most Recently Relevant to Health Maintenance Insurance [facility] BLUE CROSS - [place] MEDICARE ADVANTAGE Care Teams Groundman Relationship Specialty Start Date End Date Tho Cha MD [address] [place] [address] PCP - General Family Medicine 06/02/24
== END 2024-07-08 14:24 | disposition home or self-care (01) ==
LOC: HO.HMCFM 13:20
PROVIDERS: PCP Family Medicine; Visit Provider Family Medicine
DX: I10 Essential (primary) hypertension (principal); E78.5 Hyperlipidemia, unspecified; I25.10 Atherosclerotic heart disease of native coronary artery without angina pectoris; R74.8 Abnormal levels of other serum enzymes; R05.9 Cough, unspecified

== ENCOUNTER → 2024-07-08 13:19 | Outpatient (BNVA) | payer MEDICARE, SELFPAY | PROVIDERS: PCP Family Medicine; Visit Provider Family Medicine | DX: E78.5 Hyperlipidemia, unspecified (principal); I10 Essential (primary) hypertension; I25.10 Atherosclerotic heart disease of native coronary artery without angina pectoris; R74.8 Abnormal levels of other serum enzymes; R05.9 Cough, unspecified | CPT/HCPCS: 96127; 99212 ==

== ENCOUNTER 2024-08-09 08:22 | Outpatient (REF) | payer MEDICARE, SELFPAY ==
--- OUTSIDE RECORDS SUMMARY | 2024-08-09 08:34 | XMS_ITS | Encounter Summary ---
Author Organization [employer] Address [address] [place] [address] Care Team Providers Care Dielectric Tester Name Role Phone Tho Cha MD Primary Care Provider [phone]- [phone] Encounter Details Date Type Department Care Team (Late st Contact Info) Description 06/09/2024 Lab Requisition [facility] - Main Lab [address] [facility] [place] [phone] Aleida Maher, PA [address] [facility] [address] [place] [address] Malignant neoplasm of prostate (CMS/HCC V24, CMS/HCC [...] LAB CHEMISTRY METHOD 06/09/2024 4:53 PM EDT [facility] Blood Venous blood specimen / Unknown 06/09/2024 9:40 AM EDT 06/09/2024 3:26 PM EDT Narrative [facility] - 06/09/2024 4:53 PM EDT The Siemens Advia Centaur Chemiluminescent Immunoassay is used. Results obtained with different assay methods or kits cannot be used interchangeably. Results cannot be interpreted as absolute evidence of the presence or absence of malignant disease. us Aleida ONEIL LAB BLOOD ORDERABLES Final Resul t [facility] [address] [place] [address], documented in this encounter Visit Diagnoses Diagnosis Malignant neoplasm of prostate (CMS/HCC V24, CMS/HCC V28) Malignant neoplasm of prostate documented in this encounter Care Teams Dielectric Tester Relationship Specialty Start Date End Date Tho Cha MD [address] [place] [address] PCP - General Family Medicine 06/02/24 documented as of this encounter
[2024-08-09 09:19] LABS: Cholesterol 140 mg/dL (<200); HDL Cholesterol 54 mg/dL (>40); LDL Cholesterol Calculated 71 mg/dL (<100); Triglycerides 75 mg/dL (<150)
== END 2024-08-09 08:23 | disposition home or self-care (01) ==
LOC: HO.LAB 08:22
PROVIDERS: PCP Family Medicine; Visit Provider Internal Medicine Cardiovascular Disease
DX: I49.3 Ventricular premature depolarization (principal); E78.00 Pure hypercholesterolemia, unspecified
CPT/HCPCS: 36415; 80061

== ENCOUNTER 2024-10-01 08:02 | Outpatient (REF) | payer MEDICARE, SELFPAY ==
--- OUTSIDE RECORDS SUMMARY | 2024-10-01 08:04 | XMS_ITS | Encounter Summary ---
Author Organization [employer] Address [address] [place] [address] Care Team Providers Care Direct Care Provider Name Role Phone Tho Cha MD Primary Care Provider [phone]- [phone] Encounter Details Date Type Department Care Team (Late st Contact Info) Description 06/09/2024 Lab Requisition [facility] - Main Lab [address] [facility] [place] [phone] Aleida Maher, PA [address] [facility] [address] [place] [address] Malignant neoplasm of prostate (CMS/HCC V24, CMS/HCC [...] LAB CHEMISTRY METHOD 06/09/2024 4:53 PM EDT [facility] Blood Venous blood specimen / Unknown 06/09/2024 9:40 AM EDT 06/09/2024 3:26 PM EDT Narrative [facility] - 06/09/2024 4:53 PM EDT The Siemens Advia Centaur Chemiluminescent Immunoassay is used. Results obtained with different assay methods or kits cannot be used interchangeably. Results cannot be interpreted as absolute evidence of the presence or absence of malignant disease. us Aleida ONEIL LAB BLOOD ORDERABLES Final Resul t [facility] [address] [place] [address], documented in this encounter Visit Diagnoses Diagnosis Malignant neoplasm of prostate (CMS/HCC V24, CMS/HCC V28) Malignant neoplasm of prostate documented in this encounter Care Teams Direct Care Provider Relationship Specialty Start Date End Date Tho Cha MD [address] [place] [address] PCP - General Family Medicine 06/02/24 documented as of this encounter
[2024-10-01 11:41] LABS: Alanine Aminotransferase 91 U/L (0-40); Albumin Level 4.2 g/dL (3.5-5.0); Alkaline Phosphatase 54 U/L (39-117); Anion Gap 10 (12-20); Aspartate Amino Transferase 79 U/L (5-37); Blood Urea Nitrogen 18 mg/dL (9-16); Calcium 9.0 mg/dL (8.4-10.2); Carbon Dioxide 30 mmol/L (22-29); Chloride 107 mmol/L (96-108); Cholesterol 133 mg/dL (<200); Estimated Glomerular Filt Rate > 60; HDL Cholesterol 58 mg/dL (>40); Potassium 5.0 mmol/L (3.3-5.1); Sodium 142 mmol/L (135-145); Total Protein 6.3 g/dL (6.5-8.0); Triglycerides 59 mg/dL (<150)
== END 2024-10-01 08:03 | disposition home or self-care (01) ==
LOC: HO.WFDLDS 08:02
PROVIDERS: Visit Provider Family Medicine
DX: Z00.00 Encounter for general adult medical examination without abnormal findings (principal); R74.8 Abnormal levels of other serum enzymes; E78.5 Hyperlipidemia, unspecified
CPT/HCPCS: 36415; 80053; 80061

== ENCOUNTER 2024-10-11 14:09 | Outpatient (AMB) | payer MEDICARE, SELFPAY ==
[2024-10-11 14:12] VITALS: BP 126/78; PULSE 57; RESP 16; TEMP 36.6; O2SAT 98; BMI 28.2
--- NOTE | 2024-10-11 14:12 | MHC.PC.OV ---
Vital Signs 10/11/24 14:12 Height 5 ft 6 in Weight 175 lb BMI 28.2 BP 126/78 Blood Pressure Location Rt brachial Position Sitting Respiration 16 Pulse 57 Pulse Source Pulse Oximeter Temp 97.8 F Temp Source Oral Pulse Oximetry (%) 98 Oxygen Delivery Method Room Air Intake Visit Reasons: f/u HLD, liver enzymes Allergies adhesive tape Allergy (Intermediate, Verified 10/11/24 14:16) Rash Medication List - Last Reconciled 10/11/24 by Tho Cha MD aspirin (Adult Low Dose Aspirin) 81 mg PO DAILY clobetasol 0.05% topical ezetimibe 10 mg PO DAILY metoprolol succinate ER 25 mg PO DAILY nitroglycerin 0.4 mg sublingual Q5M PRN rosuvastatin 40 mg PO DAILY Tobacco use date assessed: 10/11/24 Fall risk assessment: No Falls in past year Last assessed Fall Risk: 10/11/24 Dental Screening Dental Screen Date: 10/11/24 Did you have a dental visit in the last 12 months?: Yes Did you have a dental problem in the last 6 months where you did not have access to dental care?: No Was dental information given to patient?: Patient has dentist HPI f/u HLD, liver enzymes HPI Details 74 y/o male presents to f/u HLD, liver enzymes. BP today 126/78, 57p. He is on metoprolol 25mg dailly. Labs drawn 10/01/24. Reviewed labs with pt. Triglycerides 59. TC 133. LDL 64. HDL 58. He is on ezetimibe 10mg, rosuvastatin 40mg daily. Elevated liver enzymes - AST 79, ALT 91. Denies excess EtOH/tylenol use. HPI Comments History of Present Illness Details Documentation assistance for Tho Cha MD, was provided by Arie Mensah,? Transport Aide on 10/11/2024 at 2:40 PM EST. I, Dr. Cha, have read, observed, and verified documentation. ?? [facility] Surgical History History of bilateral knee replacement Social History Housing: Apartment Alcohol intake: current Patient Tobacco Use Status: Never used Tobacco e-Cigarette/Vaping Use: Never Used Second Hand Smoke Exposure: No service: Yes ([employer]) Current occupational status: retired Current occupational exposures/hazards: No Cognitive needs: No Hearing needs: Yes Vision needs: Yes Questionnaire PHQ-9 Over the last 2 weeks, how often have you been bothered by any of the following problems? 1. Little interest or pleasure in doing things: not at all 2. Feeling down, depressed, or hopeless: not at all 3. Trouble falling or staying asleep, or sleeping too much: not at all 4. Feeling tired or having little energy: several days 5. Poor appetite or overeating: not at all 6. Feeling bad about yourself - or that you are a failure or have let yourself or your family down: not at all 7. Trouble concentrating on things, such as reading the newspaper or watching television: not at all 8. Moving or speaking so slowly that other people could have noticed. Or the opposite - being so fidgety or restless that you have been moving around a lot more than usual: not at all 9. Thoughts that you would be better off or of hurting yourself in some way: not at all Total score: 1 Depression Screening Interpretation: Negative Depression Screening Done: Yes Source: Developed by Drs. Teodoro Howard, Obdulia Muniz, Navi Todd and colleagues, with an educational omi from [employer]. Thrive Questionnaire Date Thrive assessed: 07/08/24 I am a: Patient What is your living situation today?: I have a steady place to live Within the past 12 months, did the food you bought not last and you didn't have the money to get more?: Never true Within the past 12 months, did you worry whether your food would run out before you got money to buy more?: Never true Do you have trouble paying for medicines?: No Do you have trouble getting transportation to medical appointments?: No Do you have trouble paying your heating and electricity bill?: No Do you have trouble taking care of your child, family member or friend?: I choose not to answer this question Do you have trouble with day-to-day activities such as bathing, preparing meals, shopping, managing finances, etc.?: No Are you currently unemployed and looking for a job?: No Are you interested in more education?: Yes Please select the resources that you would like help with: None Currently or been in a relationship where the following occur: I choose not to answer THRIVE Score: 0 AUDIT C Alcohol Use Questionnaire (AUDIT-C) 1. How often do you have a drink containing alcohol?: 2-4 times a month 2. How many drinks containing alcohol do you have on a typical day when you are drinking?: 1 or 2 3. How often do you have six or more drinks on one occasion?: Never Total Score: 2 JUAN JOSE-7 AMB Questionnaire JUAN JOSE-7 Date JUAN JOSE - 7 assessed: 07/08/24 Feeling nervous, anxious, or on edge: 0 = Not at all Not being able to stop or control worryin = Not at all Worrying too much about different things: 0 = Not at all Trouble relaxin = Not at all Being so restless that it is hard to sit still: 0 = Not at all Becoming easily annoyed or irritable: 0 = Not at all Feeling afraid as if something awful might happen: 0 = Not at all Total JUAN JOSE-7 score (0-4 normal; 5-9 mild; 10-14 moderate; 15-21 severe): 0 Source: Developed by Drs. Teodoro Howard, Obdulia Muniz, Navi Todd and colleagues, with an educational omi from [employer]. Review of Systems Const Denies chills, Denies fatigue, Denies fever(s), Denies headache(s) and Denies weakness ENT Denies dizziness and Denies headache(s) Card Denies dyspnea Resp Denies cough, Denies dyspnea, Denies wheezing and Denies other (shortness of breath) Musc Denies numbness and Denies tingling Neuro Denies dizziness, Denies headache(s), Denies numbness, Denies tingling and Denies weakness Psych Denies anxiety and Denies depression Endo Denies fatigue Aller/Immun Denies wheezing Physical exam (Primary Care) Vital Signs: Last Vital Signs Temp 97.8 F 10/11/24 14:12 Pulse 57 10/11/24 14:12 Resp 16 10/11/24 14:12 BP 126/78 10/11/24 14:12 Pulse Ox 98 10/11/24 14:12 Oxygen Delivery Method Room Air 10/11/24 14:12 BMI result Body Mass Index 28.2 Tobacco/Smoking Status: Tobacco use Status Tobacco use date assessed 10/11/24 10/11/24 14:17 Patient Tobacco Use Status Never used Tobacco 10/11/24 14:17 e-Cigarette/Vaping Use Never Used 10/11/24 14:17 PHQ-9: PHQ-9 Score PHQ-9: Total score 1 10/11/24 14:40 Depression Screening Interpretation: Negative Thrive Assessment: Date of Thrive Assessment Date Thrive assessed 07/08/24 10/11/24 14:17 Currently or been in a relationship where the following occur: I choose not to answer Const General: well developed; No acute distress Nutritional Appearance: well nourished Orientation/consciousness: patient oriented x3 HENMT Head: Yes normocephalic and Yes atraumatic Eyes General: appearance normal, both eyes and all related structures Pupils: Equal, round and reactive pupils present EOM: EOMs intact bilaterally Resp Effort & Inspection: normal respiratory effort Auscultation: clear to auscultation bilaterally Cardio Rate: regular rate Rhythm: regular rhythm Heart sounds: S1 normal heart sound present, S2 normal heart sound present, no gallops, no murmurs and no rubs Neuro General: patient oriented x3 and gait normal Cranial nerves: Yes Equal, round and reactive pupils present Psych Affect: normal affect Coding Level of Care Code Est Pt Level 4 (54633) Diagnoses Hypertension I10 Coronary artery disease I25.10 Hyperlipidemia E78.5 Elevated liver enzymes R74.8 Assessment & Plan Assessment & Plan (1) Hypertension: Code(s): I10 - Essential (primary) hypertension Category: Medical Plan: Blood pressure is controlled. Goal is less than 130/80 Continue current medication (2) Coronary artery disease: Code(s): I25.10 - Atherosclerotic heart disease of [place] coronary artery without angina pectoris Category: Medical Plan: Stable Follow-up with Cardiology as recommended (3) Hyperlipidemia: Code(s): E78.5 - Hyperlipidemia, unspecified Category: Medical Plan: Patient is on rosuvastatin and Zetia LDL goal is less than 70 and patient has reached goal. Continue current medications (4) Elevated liver enzymes: Code(s): R74.8 - Abnormal levels of other serum enzymes Category: Medical Plan: Ongoing liver enzymes and these have risen since last check Will get ultrasound with elastography Will call patient of action is required Encouraged 5 lb weight loss Orders: Orders US abdomen pack w elastography Today R74.8 - Abnormal levels of other serum enzymes Complete Blood Count Auto Diff Today Z00.00 - Encounter for general adult medical examination without abnormal findings Microalbumin, Random (w Creat) Today I10 - Essential (primary) hypertension Lipid Panel Today Z00.00 - Encounter for general adult medical examination without abnormal findings Prostate Specific Antigen Scr Today Z12.5 - Encounter for screening for malignant neoplasm of prostate UA CC w/rflx Micro + Cult Today Z00.00 - Encounter for general adult medical examination without abnormal findings Comprehensive [place]. Panel Fast Today Z00.00 - Encounter for general adult medical examination without abnormal findings TSH reflex Free T4 Today Z00.00 - Encounter for general adult medical examination without abnormal findings
--- OUTSIDE RECORDS SUMMARY | 2024-10-11 14:18 | XMS_ITS | Encounter Summary ---
Author Organization [employer] Address [address] [place] [address] Care Team Providers Care Yarding Supervisor Name Role Phone Tho Cha MD Primary Care Provider [phone] Encounter Details Date Type Department Care Team (Late st Contact Info) Description 06/09/2024 Lab Requisition [facility] - Main Lab [address] [facility] [place] [phone] Aleida Maher, PA [address] [facility] [address] [place] [address] Malignant neoplasm of prostate (CMS/HCC V24, CMS/HCC [...] LAB CHEMISTRY METHOD 06/09/2024 4:53 PM EDT [facility] Blood Venous blood specimen / Unknown 06/09/2024 9:40 AM EDT 06/09/2024 3:26 PM EDT Narrative [facility] - 06/09/2024 4:53 PM EDT The Siemens Advia Centaur Chemiluminescent Immunoassay is used. Results obtained with different assay methods or kits cannot be used interchangeably. Results cannot be interpreted as absolute evidence of the presence or absence of malignant disease. us Aleida ONEIL LAB BLOOD ORDERABLES Final Resul t [facility] [address] [place] [address], documented in this encounter Visit Diagnoses Diagnosis Malignant neoplasm of prostate (CMS/HCC V24, CMS/HCC V28) Malignant neoplasm of prostate documented in this encounter Care Teams Yarding Supervisor Relationship Specialty Start Date End Date Tho Cha MD [address] [place] [address] PCP - General Family Medicine 06/02/24 documented as of this encounter
== END 2024-10-11 14:46 | disposition home or self-care (01) ==
LOC: HO.HMCFM 14:10
PROVIDERS: PCP Family Medicine; Visit Provider Family Medicine
DX: I10 Essential (primary) hypertension (principal); I25.10 Atherosclerotic heart disease of native coronary artery without angina pectoris; E78.5 Hyperlipidemia, unspecified; R74.8 Abnormal levels of other serum enzymes

== ENCOUNTER → 2024-10-11 14:09 | Outpatient (BNVA) | payer MEDICARE, SELFPAY | PROVIDERS: PCP Family Medicine; Visit Provider Family Medicine | DX: I10 Essential (primary) hypertension (principal); I25.10 Atherosclerotic heart disease of native coronary artery without angina pectoris; E78.5 Hyperlipidemia, unspecified; R74.8 Abnormal levels of other serum enzymes; Z79.899 Other long term (current) drug therapy; Z13.31 Encounter for screening for depression | CPT/HCPCS: 96127; 99212 ==

== ENCOUNTER 2024-12-02 08:04 | Outpatient (REF) | payer MEDICARE, SELFPAY ==
--- NOTE | ~2024-12-02 | US_ITS ---
EXAMINATION: US ABDOMEN LIMITED WITH LIVER ELASTOGRAPHY HISTORY: R74.8 - Abnormal levels of other serum enzymes TECHNIQUE: Real-time grayscale ultrasound imaging of the right upper quadrant was performed and images were reviewed. COMPARISON: There are no prior studies available for comparison. FINDINGS: Liver: The right lobe of the liver measures 13.3 cm in size. The left lobe of the liver measures 9.6 cm in size. The liver demonstrates mildly increased echotexture, consistent with steatosis. There is a 5 mm cyst in the right lobe. 2.0 x 1.0 x 1.6 cm echogenic mass is seen in the right lobe which may represent a hemangioma. No intrahepatic biliary ductal dilatation is identified. There is normal hepatopedal flow in the portal vein. Ultrasound elastography of the liver was performed with 10 separate measurements of the liver parenchyma with the patient in the supine position. Measurements were obtained approximately 2 cm below Davonte's capsule and perpendicular to the capsule. The median shear wave velocity is 1.24 m/s. The interquartile range/median (IQR/median) is 0.1. Gallbladder and biliary tree: The gallbladder is unremarkable, without evidence of calculi, wall thickening, or pericholecystic fluid. There is no sonographic Caputo sign. The common bile duct is normal in caliber measuring 3 mm. Right Kidney: The right kidney measures 11.1 cm in length. The right kidney is unremarkable, without evidence of masses, hydronephrosis, or calculi. Pancreas: The pancreatic head, neck, and body are unremarkable. The pancreatic tail is obscured by bowel gas. Abdominal aorta and inferior vena cava: The visualized portions of the abdominal aorta and inferior vena cava are normal in caliber. There is no free fluid in the right upper quadrant. US/US abdomen pack w elastography IMPRESSION: Mild hepatic steatosis. 2.0 x 1.0 x 1.6 cm echogenic mass in the right lobe of the liver which may represent a hemangioma. Could be confirmed with MRI. The median shear wave velocity in the liver is 1.24 m/s, corresponding to a median liver stiffness of 4.6 kPa. The IQR/median value is 0.11. This is indicative of a quality data set. Findings are indicative of a normal elastography value with a low likelihood of severe fibrosis or cirrhosis. REFERENCE: Society of Radiologists in Ultrasound Liver Stiffness Thresholds (2020): LIVER STIFFNESS THRESHOLDS: *Shear wave velocity less than 1.3 m/s (Liver Stiffness equal or less than 5 kPa): High probability of being normal. *Shear wave velocity less than 1.7 m/s (Liver Stiffness less than 9 kPa): In the absence of other known clinical signs, rules out compensated advanced chronic liver disease. *Shear wave velocity between 1.7-2.1 m/s (Liver Stiffness 9-13 kPa): Suggestive of compensated advanced chronic liver disease but need further test for confirmation. *Shear wave velocity between 2.1-2.4 m/s (Liver Stiffness 13-17 kPa): Rules in compensated advanced chronic liver disease. *Shear wave velocity greater than 2.4 m/s (Liver Stiffness over 17 kPa): Suggestive of clinically significant portal hypertension. QUALITY OF DATA SET: *IQR/Median value equal or less than 0.30 implies a quality data set. *IQR/Median value over 0.30 implies a poor quality data set. SIGNIFICANT CHANGE FROM PRIOR EXAM: Significant change if liver stiffness measurement is 10% or greater from prior exam. OTHER CONSIDERATIONS: The stage of liver fibrosis may be overestimated in the setting of acute hepatitis, liver inflammation, elevated liver function tests, hepatic vascular congestion, obstructive cholestasis, non-fasting state, and infiltrative diseases such as amyloidosis and lymphoma. In some patients with NAFLD, the liver stiffness thresholds for compensated advanced chronic liver disease may be lower. In causes other than viral hepatitis and NAFLD, liver stiffness thresholds are not well established. Electronically signed by: Teodoro Mckenzie MD 12/02/2024 08:42 AM EDT
--- OUTSIDE RECORDS SUMMARY | 2024-12-02 08:13 | XMS_ITS | Clinical Summary ---
Author Organization [address] [facility] Address [address] [place] [address] Phone Care Team Providers Care Agriculture Department Chair Name Role Phone Tho Cha MD Primary Care Provider Medications bisacodyL (DULCOLAX) 5 mg EC tablet Take 2 tabs at 6pm as directed. 04/29/19 24 Active [id number] ORAL Take by mouth. Active ascorbic acid-vitamin [...] DAY 90 tablet 1 06/09/19 25 Active metoprolol succinate (TOPROL-XL) 25 mg 24 hr tablet TAKE 1 TABLET BY MOUTH EVERY DAY 90 tablet 3 10/26/19 25 Active Active Problems Problem Noted Date Diagnosed Date Pure hypercholesterolemia 07/26/2022 BCC (basal cell carcinoma of skin) 07/04/2022 Overview (02/17/2024): Face, follows up yearly with manager public [employer] 11/13/2021 Overview (02/17/2024): Home test. 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 He is feeling great. Tolerating BB. Hyperlipidemia 06/11/2007 Overview (02/17/2024): Last Assessment & Plan: Last lipid panel 04/30 total cholesterol 154, HDL 66, LDL 76. Continue statin. Psoriasis 12/06/2005 Overview (02/17/2024): [facility] Immunizations Name Administration Dates Next Due Influenza [...] ANTIGEN FREE; COMMENT: 2.1 COLONOSCOPY 04/15 PROCEDURE: IN COLONOSCOPY STOMA DX INCLUDING COLLJ SPEC SPX; COMMENT: Willard; charlene; rpt 10 y COLONOSCOPY 04/07/12 PROCEDURE: IN COLONOSCOPY STOMA DX INCLUDING COLLJ SPEC SPX; COMMENT: charlene; repeat in ten yrs KNEE ARTHROSCOPY 11/19 Left PROCEDURE: IN ARTHROSCOPY KNEE DIAGNOSTIC W/WO SYNOVIAL BX SPX; [...] 06/22/2020, 05/31/2020 Colorectal Cancer Screening: Colonoscopy 02/16/2022 Falls Risk Assessment 02/16/2022 Medicare Annual Wellness Visit 02/16/2022 Social Influencers of Health Screening 02/16/2022 Depression Screening 03/10/2024 Influenza Vaccine (#1) 2024 , 11/10/2018, 04/02/2018, Additional history exists RSV Immunization [...] Procedure Name Priority Date/Time Associated Diagnosis Comments LIPID PANEL Routine 03/28/2022 US ABDOMINAL AORTA REAL TIME SCREEN STUDY AAA Routine 04/23/2018 9:05 AM EST Encounter for screening for cardiovascular disorders HM HEPATITIS C SCREENING Routine 11/04/2012 from Last 3 Months or Most Recently Relevant to Health Maintenance Results * Lipid panel (03/28/2022) LDL/HDL Ratio 2 0 - 4 Triglycerides 50 0 - 150 mg/dL Cholesterol 163 0 - 200 mg/dL HDL 79 >=40 mg/dL LDL Cholesterol 74 0 - 100 mg/dL Blood Venous blood specimen / Unknown us Historical Provider LAB BLOOD ORDERABLES Manju l Result * US ABDOMINAL AORTA REAL TIME [...] R esult * Hepatitis C Screening (11/04/2012) Pathologist [facility] Hepatitis C Screening abstracted Historical Provider MD HEALTH MAINTENANCE Final Result from Last 3 Months or Most Recently Relevant to Health Maintenance Insurance [facility] - [place] MEDICARE ADVANTAGE Care Teams Agriculture Department Chair Relationship Specialty Start Date End Date Tho Cha MD PCP - General Family Medicine 06/02/24
--- OUTSIDE RECORDS SUMMARY | 2024-12-02 08:13 | XMS_ITS | Encounter Summary ---
Author Organization [employer] Address [address] [place] [address] Care Team Providers Care Lead Pony Rider Name Role Phone Tho Cha MD Primary Care Provider [phone]- [phone] Encounter Details Date Type Department Care Team (Late st Contact Info) Description 06/09/2024 Lab Requisition [facility] - Main Lab [address] [facility] [place] [phone] Aleida Maher, PA [address] [facility] [address] [place] [address] Malignant neoplasm of prostate (CMS/HCC V24, CMS/HCC [...] t [facility] [address] [place] [address], documented in this encounter Visit Diagnoses Diagnosis Malignant neoplasm of prostate (CMS/HCC V24, CMS/HCC V28) Malignant neoplasm of prostate documented in this encounter Care Teams Lead Pony Rider Relationship Specialty Start Date End Date Tho Cha MD PCP - General Family Medicine 06/02/24 documented as of this encounter
== END 2024-12-02 08:05 | disposition home or self-care (01) ==
LOC: HO.US 08:04
PROVIDERS: PCP Family Medicine; Visit Provider Family Medicine
DX: R74.8 Abnormal levels of other serum enzymes (principal)
CPT/HCPCS: 76705; 76981

== ENCOUNTER → 2024-12-02 08:05 | Outpatient (BNV) | payer MEDICARE, SELFPAY | PROVIDERS: PCP Family Medicine; Visit Provider Radiology Diagnostic Radiology | DX: K76.0 Fatty (change of) liver, not elsewhere classified (principal); R93.2 Abnormal findings on diagnostic imaging of liver and biliary tract | CPT/HCPCS: 76705 ==